=== PATIENT | female | born 1950 | race Caucasian/White ===

== ENCOUNTER → 2017-04-07 | Outpatient (CLI) | payer OTHER | LOC: FIMAGING 09:35 | PROVIDERS: ATTEND Family Medicine | DX: Z12.31 Encounter for screening mammogram for malignant neoplasm of breast (principal) | CPT/HCPCS: G0202 ==

== ENCOUNTER 2018-05-14 14:30 | Observation (INO) | payer OTHER ==
--- NOTE | 2018-05-14 15:11 | EDPHY ---
H & P Time Seen by Provider: 05/14/18 14:59 HPI/ROS: Chief complaint. Numbness right-sided HPI. Patient is a 67-year-old female presents emergency department with episodes yesterday and today of numbness to right arm and leg. Is present when she gets up to walk with then resolves after 1-2 minutes with walking. She had 1 episode of above symptoms yesterday lasting 1-2 minutes and then 2 episodes today. She denies any weakness to arm or leg but only altered sensation. Her face is not been involved. She feels somewhat dizzy and foggy. She denies recent illness, recent head injury. She denies chest discomfort, shortness of breath, abdominal pain or fever. No similar symptoms previously. ROS 10 systems were reviewed and negative with the exception of the elements mentioned in the history of present illness Past Medical/Surgical History: Atrial fibrillation in the past after vomiting resolving spontaneously, hypothyroid, osteoarthritis Social History: , nonsmoker, no alcohol Smoking Status: Never smoked Physical Exam: General Appearance: Alert pleasant well-developed female mild distress vitals are stable Eyes: Pupils equal and round no pallor or injection. ENT, Mouth: Mucous membranes are moist. Respiratory: There are no retractions, lungs are clear to auscultation. Cardiovascular: Regular rate and rhythm. Gastrointestinal: Abdomen is soft and nontender, no masses, bowel sounds normal. Neurological: Awake and alert, sensory and motor exams grossly normal. Speech is normal. Cranial nerves are normal. There is no altered sensation to either side of the face. There is no pronator drift. [id number] and [id number]-ev-[id number] are intact bilaterally Skin: Warm and dry, no rashes. Musculoskeletal: Neck is supple nontender. Extremities symmetrical, full range of motion. Psychiatric: Patient is oriented X 3, there is no agitation. Constitutional: Initial Vital Signs Temperature (C) 36.7 C 05/14/18 14:42 Heart Rate 69 05/14/18 14:42 Respiratory Rate 16 05/14/18 14:42 Blood Pressure 120/58 L 05/14/18 14:42 O2 Sat (%) 95 05/14/18 14:42 O2 Delivery Mode Room Air Allergies/Adverse Reactions: No Known Allergies Allergy (Unverified 05/14/18 14:41) Home Medications: Medication Instructions Recorded Celexa 05/14/18 Levothyroxine 05/14/18 Medical Decision Making - Diagnostics EKG Interpretation: EKG interpreted by me shows normal sinus rhythm normal interval and axis. QRS is normal. T-wave inversion in lead 3 and flat in AVF. No arrhythmia. The rate is 68 Previous EKG showed T-wave inversion in lead 3 with upright T in AVF. Otherwise no significant change Imaging Results: Imaging Impressions Brain MRI 05/14/18 15:13 Impression: 1. 3 nonacute white matter foci, not numerous enough to merit consideration of a multifocal demyelinating process such as multiple sclerosis. 2. Small asymmetrical field dropout in the right anterior internal capsule. Differential diagnosis includes hemorrhage and calcification. Consider obtaining a noncontrast head CT for differentiation, as clinically directed. 3. No evidence for acute infarction. Results discussed with Dr. Seth Lozano at 5:[address] 05/14/18 17:25 Impression: No evidence for acute intracranial abnormality or intracranial hemorrhage. Results called and discussed with Seth Lozano M.D., on May 14, 2018 at 1801. MRI brain reviewed by me and discussed with Dr. Phillips shows no acute infarction. There is a small focal finding possible hemorrhage or calcification in the right anterior internal capsule. CT recommended for differentiation Head CT reviewed by me and discussed with Dr. Hanna is normal ED Course/Re-evaluation: Re-evaluation at 5:20 p.m.. Patient and I discussed imaging and lab results as well as EKG findings. She has no symptoms now I consulted discussed the case with Dr. Boykin for neurology who recommends admission for TIA workup I consulted discussed the case with Dr. Good for hospitalist service who agrees to admission I have discussed this with patient and her . They expressed understanding and agreement Differential Diagnosis: I considered CVA, intracranial bleeding, TIA. Patient has paresthesias peer - Data Points Laboratory Results: Laboratory Results 05/14/18 15:45 05/14/18 15:45 05/14/18 05/14/18 05/14/18 15:50 15:45 15:45 WBC RBC Hgb Hct MCV MCH MCHC RDW Plt Count MPV Neut % (Auto) Lymph % (Auto) [place] % (Auto) Eos % (Auto) Baso % (Auto) Nucleat RBC Rel Count Absolute Neuts (auto) Absolute Lymphs (auto) Absolute Monos (auto) Absolute Eos (auto) Absolute Basos (auto) Absolute Nucleated RBC Immature Gran % Immature Gran # Sodium 139 mEq/L mEq/L (135-145) Potassium 4.0 mEq/L mEq/L (3.5-5.2) Chloride 108 mEq/L mEq/L (97-110) Carbon Dioxide 23 mEq/l mEq/l (22-31) Anion Gap 8 mEq/L mEq/L (6-14) BUN 21 mg/dL mg/dL (7-23) Creatinine 1.0 mg/dL mg/dL (0.6-1.0) Estimated GFR 56 Glucose 90 mg/dL mg/dL (70-100) Calcium 9.5 mg/dL mg/dL (8.5-10.4) POC Troponin I 0.00 ng/mL ng/mL (0.00-0.08) TSH 2.240 uIU/mL uIU/mL (0.465-4.680) 05/14/18 15:45 WBC 7.63 10^3/uL 10^3/uL (3.80-9.50) RBC 4.44 10^6/uL 10^6/uL (4.18-5.33) Hgb 12.7 g/dL g/dL (12.6-16.3) Hct 37.5 % L % (38.0-47.0) MCV 84.5 fL fL (81.5-99.8) MCH 28.6 pg pg (27.9-34.1) MCHC 33.9 g/dL g/dL (32.4-36.7) RDW 12.9 % % (11.5-15.2) Plt Count 207 10^3/uL 10^3/uL (150-400) MPV 8.7 fL fL (8.7-11.7) Neut % (Auto) 57.3 % % (39.3-74.2) Lymph % (Auto) 25.4 % % (15.0-45.0) [place] % (Auto) 13.4 % H % (4.5-13.0) Eos % (Auto) 2.1 % % (0.6-7.6) Baso % (Auto) 0.5 % % (0.3-1.7) Nucleat RBC Rel Count 0.0 % % (0.0-0.2) Absolute Neuts (auto) 4.37 10^3/uL 10^3/uL (1.70-6.50) Absolute Lymphs (auto) 1.94 10^3/uL 10^3/uL (1.00-3.00) Absolute Monos (auto) 1.02 10^3/uL H 10^3/uL (0.30-0.80) Absolute Eos (auto) 0.16 10^3/uL 10^3/uL (0.03-0.40) Absolute Basos (auto) 0.04 10^3/uL 10^3/uL (0.02-0.10) Absolute Nucleated RBC 0.00 10^3/uL 10^3/uL (0-0.01) Immature Gran % 1.3 % H % (0.0-1.1) Immature Gran # 0.10 10^3/uL 10^3/uL (0.00-0.10) Sodium Potassium Chloride Carbon Dioxide Anion Gap BUN Creatinine Estimated GFR Glucose Calcium POC Troponin I TSH Medications Given: Discontinued Medications Sodium Chloride (Ns) 1,000 mls @ 0 mls/hr IV EDNOW ONE; Wide Open PRN Reason: Protocol Stop: 05/14/18 15:14 Last Admin: 05/14/18 15:51 Dose: 1,000 mls Point of Care Test Results: Chemistry 05/14/18 15:50 POC Troponin I 0.00 ng/mL ng/mL (0.00-0.08) Departure - Departure Disposition: [facility] Inpatient Acute Clinical Impression: Transient cerebral ischemia Qualifiers: Transient cerebral ischemia type: unspecified Qualified Code(s): G45.9 - Transient cerebral ischemic attack, unspecified Condition: Good Referrals: Saima Montgomery MD [Primary Care Provider] - As per Instructions
[2018-05-14] MEDS ORDERED: NS 1,000 ML IV ONE (15:13)
[2018-05-14 15:53] LABS: PLATELET COUNT 207 10^3/uL (150-400)
[2018-05-14] MEDS ORDERED: GADOBUTROL 10 ML VIAL IVP ONE (15:59)
--- NOTE | 2018-05-14 16:08 | CPEKG ---
Test Reason : OPEN Blood Pressure : / mmHG Vent. Rate : 068 BPM Atrial Rate : 068 BPM P-R Int : 144 ms QRS Dur : 076 ms QT Int : 402 ms P-R-T Axes : 011 027 -11 degrees QTc Int : 428 ms Sinus rhythm Low voltage, precordial leads Borderline T abnormalities, inferior leads Confirmed by Seth Lozano ([id number]) on 05/14/2018 4:07:06 PM Referred By: Confirmed By:Seth Lozano
--- NOTE | 2018-05-14 19:57 | PDGENHP ---
History and Physical History and Physical: Chief complaint: numbness, fall History of present illness: The pt is a 67yo F here for R sided numbness in her arm and leg that has occurred several times since yesterday. She has not experienced this in the past. The first time, she had gotten up from the couch and noticed that her R arm and leg had fallen asleep; this resolved in 3 minutes. Today, the symptoms returned twice and had the same duration. Both episodes occurred after she had gotten out of the car. She also stumbled and fell in a doorway at home, which is unusual. She denies any muscle weakness. She denies difficulty swallowing, difficulty with speech, vision changes, hearing changes. She admits to a slight R sided headache today. In general, she feels "spacey." She denies neck injuries or repetitive neck strain. Past medical history: hypothyroidism, depression. Past surgical history: reproductive surgeries, bilateral thumb surgeries, tummy tuck. Medications: Synthroid, Celexa. Allergies: NKA. Social history: Denies smoking or drugs. Consumes alcohol 1-2 servings, 1-2x/ month. , lives w/ . Retired - RN nursery. Family history: Paternal GF - stroke in 80s. Review of systems: 10 point review of systems was conducted and is negative except per HPI Physical exam: Vitals: Reviewed General: The patient is a female who is A&Ox3 and in no acute distress. HEENT: normocephalic, extraocular movements intact, conjunctivae clear, no lesions on face or pinnae. Nares and oral mucosa pink and moist. Neck: trachea midline, no visible masses, no external lesions. No carotid bruits bilaterally. CV: +S1/S2, reg rate and rhythm. No murmurs/rubs/gallops. Resp: unlabored breathing, lungs clear to auscultation w/o rales, rhonchi, or wheezing. Abd: soft and nondistended, bowel sounds present. Nontender to palpation throughout. 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 Normal muscle tone and bulk. Neuro: cranial nerves II -XII grossly intact. 5/5 bilat handgrip, elbow flexion , hip flexion, plantar flexion. Fine touch sensation intact b/l UE/LE. Psych: appropriate mood/affect. Skin: No rash or ecchymoses or petechiae. : no suprapubic tenderness. Heme/lymph: No peripheral edema. Labs: WBC 7.6, troponin 0.00, TSH 2.2. BMP WNL. CBC WNL. Other Data: 1) Head CT: No evidence for acute intracranial abnormality or intracranial hemorrhage. 2) Brain MRI: Impression: 1. 3 nonacute white matter foci, not numerous enough to merit consideration of a multifocal demyelinating process such as multiple sclerosis. 2. Small asymmetrical field dropout in the right anterior internal capsule. Differential diagnosis includes hemorrhage and calcification. Consider obtaining a noncontrast head CT for differentiation, as clinically directed. 3. No evidence for acute infarction. 3) EKG: NSR, rt 70, nonspecific T wave abnormality, atrial abnormality. Personally interpreted. Impression and plan: Acute RUE/RLE numbness, intermittent Possible TIA -DDx etiology - TIA, cervical radiculopathy -MRI brain/CTH negative for acute CVA. -Neurology to see pt tomorrow. -Consider to check neck CT or MRI to eval symptoms further. -Continue daily ASA. -Check HbA1C, lipid panel. Consider to start statin. -ST/PT/OT eval. -Monitor on tele. Hypothyroidism Depression -continue home meds. Code status - full. VTE ppx - ambulatory. Observation status.
[2018-05-14] MEDS ORDERED: CITALOPRAM 20 MG TAB PO SCH (21:45)
[2018-05-14] MEDS ORDERED: ONDANSETRON DISINTEGRATING 4 MG TAB PO PRN (21:46)
[2018-05-14] MEDS ORDERED: ACETAMINOPHEN 325 MG TAB PO PRN (21:46)
[2018-05-14] MEDS ORDERED: ONDANSETRON 4 MG/2 ML VIAL IVP PRN (21:46)
[2018-05-14] MEDS: ASPIRIN 81 MG CHEWABLE TAB PO SCH (22:21)
[2018-05-15] MEDS ORDERED: LEVOTHYROXINE 75 MCG TAB PO SCH (06:00)
[2018-05-15] MEDS: ASPIRIN 81 MG CHEWABLE TAB PO SCH (08:44)
[2018-05-15] MEDS ORDERED: OMEGA-3 FATTY ACIDS 1,000 MG CAP PO SCH (09:00)
[2018-05-15] MEDS ORDERED: IOPAMIDOL (ISOVUE 370) 100 ML BTL IV ONE (09:19)
--- NOTE | 2018-05-15 09:26 | ASMTCMCOM ---
CM Note CM Note Notes: CM spoke to HERMINIO Edmond. Pt is a 67 y/o female admitted for numbness and numbness and a fall. Pt was seen by neuro. Pt will most likely d/c independent when medically stable. CM available for d/c needs. Plan: Independent Date Signed: 05/15/2018 09:26 AM Electronically Signed By:GEMA Mccoy
--- NOTE | 2018-05-15 10:01 | GCON ---
NEUROLOGIC CONSULTATION REFERRING PHYSICIAN: Gissel Good DO HISTORY: The patient is a 67-year-old woman whom I am asked to see in neurologic consultation regard ing episodes of right-sided paresthesias. The day before yesterday, she said she had gotten up and n oticed tingling in her right arm and leg that lasted about 3 minutes. She had not done anything unus ual. She was simply sitting. She has had a few more episodes since then without any clear precipita ting cause, and all lasting about that same few minutes. In the hospital, she got up to go to the [facility] during the evening and again experienced some of this feeling in the right arm and leg, but no t the face. She denies any headache with this. It is not painful. No weakness. No confusion or ch jose guadalupe in vision, speech, chewing or swallowing. She has never had this before. She has not determine d any clear-cut exacerbating or alleviating factor, and no other associated symptoms. REVIEW OF SYSTEMS: Ten-point review of systems is unremarkable, except for that noted above. The pa nickie is feeling good currently. Historically, she has had some elevated cholesterol and says she to ok a statin temporarily, but got fearful of risk of causing dementia, so she stopped it. There is a history of hypothyroidism and some depression. She has had 2 episodes of atrial fibrillation in the past. One was around , and the other one was about 5 or 7 years ago when she had thumb surg malcolm. It was never sustained, and she has never been on anticoagulation. MEDICATIONS: Medications coming into the hospital: Synthroid and Celexa. In the hospital, she is t aking 81 mg of aspirin. ALLERGIES: No known drug allergies. SOCIAL HISTORY: She might have 1 or 2 drinks of alcohol a few times a month. She is . She i s a retired nurse. No smoking or drug use. Paternal grandfather with stroke in his 80s. PHYSICAL EXAM: VITAL SIGNS: Blood pressure is 106/49, pulse of 61, respirations 12, temperature 36. 6. GENERAL: She is well developed, in no acute distress. EYES: Clear. NECK: Supple, with no bru its or masses. CARDIAC: Regular rate and rhythm. No murmur. NEUROLOGIC: She is alert and attenti ve, and fully oriented to person, place, time and general situation. She has good recent and remote memory, as well as normal concentration, attention and general fund of knowledge. Fluent speech. Pu pils 3 mm and reactive. No visual field loss. Extraocular movements are intact. Normal facial sens ation and strength. Palate elevates symmetrically. Tongue protrudes midline. Hearing is preserved. No weakness of her head or shoulder movements. Motor exam: Normal muscle bulk and tone, 5/5 stren gth and no abnormal movements. Sensation is preserved for temperature and light touch. No ataxic mo vements in the upper extremities. Reflexes 2+ and symmetric. LABORATORY STUDIES: Reveal an LDL cholesterol of 145, total cholesterol 226, HDL cholesterol 49. El ectrolytes are normal. Unremarkable CBC. She had a brain MRI, which does not show any evidence of a n acute ischemic change. She has a very mild amount of white matter change. She also had a head CT that did not reveal any evidence of stroke or hemorrhage. She had an EKG. This shows sinus rhythm. The patient has an NIH Stroke Scale of 0. IMPRESSION: The patient has experienced about 4 episodes of temporary right-sided paresthesias affec ting the arm and leg. Differential considerations include transient ischemic attack, migraine phenom leni without headache, a sensory seizure phenomena, or compression of nerves at the spine level. The only thing that seems very logical would be transient ischemic attack, although it is far from certai n. She has a history of hyperlipidemia and is not on statin therapy, but had the misunderstanding th at it would increase the risk of dementia. I explained to her it does not based on most recent studi es, and she is comfortable going back on a statin. She should continue on the aspirin for now. We h ave CT angiogram of the head and neck pending, as well as echocardiogram. Interestingly, she has had 2 episodes of atrial fibrillation in the past. Although they might have had clear associations with events that involved surgery, as well as , she should still have a 30-day monitor placed th rough Cardiology after discharge to be sure there are not more episodes of occult atrial fibrillation . Otherwise, she could be safely discharged and follow up with me as an outpatient in about a month. /[id number]/MODL
[2018-05-15] MEDS ORDERED: PNEUMOC 13-VAL CONJ-DIP CRM/PF 0.5 ML SYR (PREVNAR 13) IM ONE (10:43)
[2018-05-15 11:49] VITALS: BP 101/52
--- NOTE | 2018-05-15 13:30 | ECHO ---
[email or web address] [address] [address] Main: [phone] Fax: Transthoracic Echocardiogram Name: OSWALDO OWENS MR#: [id number] Study Date: 05/15/2018 Study Time: 09:31 AM Date of : 1950 Age: 67 year(s) Height: 154.9 cm (61 in.) Weight: 52.16 kg (115 lb.) BSA: 1.49 m2 Gender: Female Examination: Echo Indication: TIA Image Quality: Contrast: Requested by: Mina Boykin BP: 106 mmHg/63 mmHg Heart Rate: Rhythm: Indication: TIA Procedure Staff Farm Marketer: Jamar Steinberg RDCS Reading Physician: Nikolay Foley MD Requesting Provider: Conclusions: Normal size left ventricle. No LV hypertrophy. Normal global systolic LV function. EF is 74 %. Upper normal size right ventricle. An agitated saline study was performed and was negative for intracardiac shunting. The mitral valve is normal in appearance and function. Trivial to mild mitral regurgitation. The aortic valve is tri-leaflet and functions normally. There is no significant aortic valve regurgitation. No aortic valve stenosis is present. No old studies for comparison. Measurements: Chambers Valvular Assessment AV/MV Valvular Assessment TV/PV Normal Normal Normal Name Value Range Name Value Range Name Value Range Ao Jody (MM): 2.6 cm (2.2 cm-3.7 AV Vmax: 1.44 m/s (1 m/s-1.7 TR Vmax: 2.44 mm/s ( - ) cm) m/s) TR PGmax: 24 mmHg ( - ) IVSd (2D): 0.8 cm (0.6 cm-1.1 AV maxP mmHg ( - ) syst. PAP: 29 mmHg ( - ) cm) LVOT Vmax: 0.86 m/s (0.7 m/s-1.1 PV Vmax: 0.96 m/s (0.6 m/s-0.9 LVDd (2D): 4.4 cm (3.9 cm-5.3 m/s) m/s) cm) MV E Vmax: 1.00 m/s ( - ) PV PGmax: 4 mmHg ( - ) LVDs (2D): 2.5 cm (2.1 cm-4 MV A Vmax: 0.88 m/s ( - ) cm) MV E/A: 1.14 ( - ) LVPWd (2D): 0.9 cm ( - ) LVEF (2D): 74 (>=54 %) RVDd(2D): 2.7 cm (1.9 cm-3.8 cmmm) Patient: OSWALDO OWENS Study Date: 05/15/2018 Page 1 of 2 09:31 AM Continued Measurements: Chambers Valvular Assessment AV/MV Valvular Assessment TV/PV Name Value Name Value Name Value LADs Lon.3 cm MV E' Septal: 0.06 m/s CVP (est.): 5 mmHg LA Area: 13.0 cm2 MV E/E' Septal: 18.00 LA Volume: 29 ml MV E/E' Lateral: 10.30 LA Volume Index: 19.5 ml/m2 Findings: Left Ventricle: Normal size left ventricle. No LV hypertrophy. Normal global systolic LV function. EF is 74 %. No regional wall motion abnormality. Grade 1 diastolic dysfunction (abnormal relaxation). Right Ventricle: Upper normal size right ventricle. Left Atrium: The left atrium is normal in size. An agitated saline study was performed and was negative for intracardiac shunting. Right Atrium: The right atrium is normal in size. Mitral Valve: The mitral valve is normal in appearance and function. Trivial to mild mitral regurgitation. Aortic Valve: The aortic valve is tri-leaflet and functions normally. There is no significant aortic valve regurgitation. No aortic valve stenosis is present. Tricuspid Valve: The tricuspid valve is normal in appearance and function. Trivial tricuspid valve regurgitation. Pulmonic Valve: The pulmonic valve is normal in appearance and function. There is no pulmonic regurgitation seen. Aorta: The aorta is normal. Pericardium: No pericardial effusion. (No Signature Object) Patient: OSWALDO OWENS Study Date: 05/15/2018 Page 2 of 2 09:31 AM [id number]
--- NOTE | 2018-05-15 15:26 | ASDISCHSUM ---
Discharge Information Plan Status:Home with No Needs Medically Cleared to Leave: Discharge Date: CM D/C Disposition:Home, Routine, Self-Care ADT D/C Disposition:Home, Routine, Self-Care Projected Discharge Date: Transportation at D/C:Family Discharge Delay Reason: Follow-Up Date: Discharge Slot: Final Diagnosis: Placement Information Patient Contact Information Contact Name:ROLANDO Relationship: Address:[address] [place] [address] Phone: City:[facility] Phone: State/Zip Code:[place] [address] Email: Financial Information Financial Class:Medicare Primary Plan Desc:MEDICARE INPATIENT Primary Plan Number:[id number] Secondary Plan Desc:FACUNDO HERNANDEZ Secondary Plan Number:[id number] Assessment Information [facility] Progress Note CM Note CM Note Notes: CM spoke to HERMINIO Edmond. Pt is a 67 y/o female admitted for numbness and numbness and a fall. Pt was seen by neuro. Pt will most likely d/c independent when medically stable. CM available for d/c needs. Plan: Independent Date Signed: 05/15/2018 09:26 AM Electronically Signed By:GEMA Mccoy LACE CANDELARIA Length of stay for Answers: Less than 1 day current admission Acuity / Level of Answers: Yes Care: Did the patient have an inpatient admission? # of Emergency department Answers: 0 visits in the last 6 months Social determinants Answers: Mental health diagnosis (anxiety, depression, pers onality disorders, etc.) Score: 6 Date Signed: 05/15/2018 03:25 PM Electronically Signed By:Leandra Moore Intervention Information Intervention Type:*Incorrect Registration Date of Service:05/15/2018 11:23 AM Patient Type:Inpatient Staff Member:Kelsy Hobbs Hours: Discipline: Severity: Comment:
--- NOTE | 2018-05-15 15:59 | GDS ---
ALL DIAGNOSES: 1. Possible transient ischemic attack. 2. Carotid artery disease with 30% stenosis of the right internal carotid artery. 3. Nonspecific white matter disease. 4. Depression. 5. Hypothyroid. HOSPITAL COURSE: This is a 67-year-old female who presented with right upper, as well as lower extre mity paresthesias. She reports that she gets these when they stand up. They last for a minute or so and then resolve. She underwent a TIA workup, including MRI of her brain, which did not show any ac [place] infarct. CT angio of her head and neck, which showed 30% right-sided ICA stenosis with heavily c alcified plaque; echocardiogram, which was negative; telemetry monitoring, which was negative; lipid screening, which showed an LDL of 145. She was seen by Neurology, Dr. Boykin, with whom I have di scussed her case. Her symptoms are not really consistent with a brain or spinal cord lesion. Consid eration could be given to further imaging of the C-spine, though she does not report any neck pain, a nd it is very unlikely to be the mary of her problems. She does report that she has had 2 episode s of atrial fibrillation in the past. I have coordinated with Brooke Leon of [facility], and shayla batista will have a 30-day outpatient event monitor ordered and a followup cardiology appointment made. Shayla batista was given this information. Her symptoms are not consistent with a vascular etiology either. I th ink she is safe to be discharged at this point; Dr. Boykin is in agreement. For her hyperlipidemia, I have started her on rosuvastatin. For her vascular disease, she will be st arted on rosuvastatin, as well as a baby aspirin. She is otherwise discharged in stable condition. FOLLOWUP: 1. Cardiology for evaluation of her outpatient event monitor. 2. Dr. Boykin in his office for ongoing management of her right-sided symptoms. She is otherwise discharged in stable condition. /[id number]/MODL
== END 2018-05-15 16:04 | disposition home or self-care (01) ==
LOC: INTOOBSV 19:02 → F3N 20:09
PROVIDERS: ADMIT Internal Medicine; ATTEND Internal Medicine
DX: I25.10 Atherosclerotic heart disease of native coronary artery without angina pectoris (principal); R90.82 White matter disease, unspecified; F32.9 Major depressive disorder, single episode, unspecified; E03.9 Hypothyroidism, unspecified; E86.9 Volume depletion, unspecified
CPT/HCPCS: 70450; 70496; 70498; 70553; 90670; 93005; 93306; 96360; 99285; A9585; G0009; G0378; Q9967; 84484-ER

== ENCOUNTER → 2018-06-10 | Outpatient (CLI) | payer OTHER | LOC: FIMAGING 09:09 | PROVIDERS: ATTEND Family Medicine | DX: Z12.31 Encounter for screening mammogram for malignant neoplasm of breast (principal); Z13.820 Encounter for screening for osteoporosis; M81.0 Age-related osteoporosis without current pathological fracture ==